=== PATIENT | male | born 1955 | race Caucasian/White ===

== ENCOUNTER 2022-03-17 15:47 | Emergency (ER) | payer OTHER ==
[~2022-03-17] VITALS: Ht 167.6 cm; Wt 89.0 kg
[2022-03-17 15:53] VITALS: BP 155/79
[2022-03-17] MEDS ORDERED: ACETAMINOPHEN 325MG TABLET PO ONE (18:00)
[2022-03-17] MEDS ORDERED: ACET-2708 MT (19:56)
== END 2022-03-17 20:40 | disposition home or self-care (01) ==
LOC: ER 15:47
DX: S00.83XA Contusion of other part of head, initial encounter (principal); I10 Essential (primary) hypertension; E11.9 Type 2 diabetes mellitus without complications; F32.A Depression, unspecified; W18.09XA Striking against other object with subsequent fall, initial encounter; Y93.89 Activity, other specified; Y92.012 Bathroom of single-family (private) house as the place of occurrence of the external cause
CPT/HCPCS: 99284

== ENCOUNTER 2024-10-09 13:44 | Emergency (ER) | payer MEDICAID, OTHER ==
[~2024-10-09] VITALS: Ht 165.1 cm; Wt 84.0 kg
[~2024-10-09 13:44] MED LIST: ACET-2708 MT
[2024-10-09 13:49] VITALS: O2SAT 98
[2024-10-09 14:07] VITALS: BP 148/74; PULSE 65; RESP 14; TEMP 36.8; O2SAT 99
[2024-10-09 15:44] LABS: BASOPHILS % 0.3 % (0.0-2.0); EOSINOPHILS % 0.8 % (0.0-5.0); HEMATOCRIT. 39.6 % (42.0-52.0); HEMOGLOBIN. 13.1 g/dL (14.0-18.0); LYMPHOCYTES % 32.5 % (20.0-50.0); MEAN CORPUSCULAR HEMOGLOBIN 30.4 pg (28.0-32.0); MEAN CORPUSCULAR VOLUME 92.1 fL (80.0-94.0); MEAN PLATELET VOLUME 8.4 fl (7.4-10.4); MONOCYTES % 7.5 % (2.0-8.0); NEUTROPHILS % 58.9 % (40.0-76.0); PLATELET 272 x1000/uL (130-400); RED CELL DISTRIBUTION WIDTH 15.5 % (11.6-14.6); WHITE BLOOD COUNT 6.4 x1000/uL (4.5-11.0)
[2024-10-09 15:51] LABS: CHLORIDE 104 mEq/L (98-107); POTASSIUM 4.5 mEq/L (3.5-5.1); SODIUM 139 mEq/L (136-145)
[2024-10-09 15:52] LABS: CARBON DIOXIDE 26 mEq/L (21-32)
[2024-10-09 15:57] LABS: CREATININE 1.2 mg/dL (0.6-1.3); GLUCOSE 130 mg/dL (70-105); TROPONIN I HIGH SENSITIVITY 4 ng/L (3.0-53); UREA NITROGEN BLOOD 15 mg/dL (9-23)
[2024-10-09 15:59] LABS: ALANINE AMINOTRANSFERASE 37 IU/L (10-49); ALBUMIN 4.3 g/dL (3.2-4.8); ASPARTATE AMINOTRANSFERASE 25 IU/L (<34); BILIRUBIN TOTAL 1.5 mg/dL (0.1-1.0); PROTEIN TOTAL 8.4 g/dL (6.0-8.3)
[2024-10-09] MEDS ORDERED: AMLO2.5T2 MT (17:02)
== END 2024-10-09 18:10 | disposition home or self-care (01) ==
LOC: ER 13:44
DX: I10 Essential (primary) hypertension (principal); F20.9 Schizophrenia, unspecified; Z79.899 Other long term (current) drug therapy; Z83.3 Family history of diabetes mellitus
CPT/HCPCS: 36415; 80053; 84484; 85025; 93005; 99284